=== PATIENT | male | born 1975 | race Caucasian/White ===

== ENCOUNTER 2016-07-05 10:38 | Emergency (ER) | payer OTHER ==
[~2016-07-05] VITALS: Ht 165.1 cm; Wt 88.5 kg
[2016-07-05] MEDS ORDERED: MOBIC7.5 MG PO (11:24)
[2016-07-05] MEDS ORDERED: ULTRAM50 MG PO (11:24)
[2016-07-05] MEDS ORDERED: FLEXERIL10 MG PO (11:24)
[2016-07-05 11:50] VITALS: BP 136/92
== END 2016-07-05 11:58 | disposition home or self-care (01) ==
LOC: EME 10:38
DX: S33.5XXA Sprain of ligaments of lumbar spine, initial encounter (principal); X50.0XXA Overexertion from strenuous movement or load, initial encounter; Y99.0 Civilian activity done for income or pay
CPT/HCPCS: 99281; 99283